=== PATIENT | female | born 1980 | race Caucasian/White ===

== ENCOUNTER 2022-09-04 12:02 | Emergency (ER) | payer SELFPAY ==
[2022-09-04] MEDS ORDERED: Rabies Immune Globulin 1500 UNITS/10 ML VIAL IM SCH (14:00)
[2022-09-04] MEDS ORDERED: Rabies Vaccine Human 2.5 UNITS VIAL IM ONE (14:00)
[2022-09-04] MEDS ORDERED: Rabies Vaccine Human 2.5 UNITS VIAL ONE (14:18)
== END 2022-09-04 15:43 ==
LOC: ERS 12:02
DX: S61.252A Open bite of right middle finger without damage to nail, initial encounter (principal); W55.51XA Bitten by raccoon, initial encounter
CPT/HCPCS: 90375; 90376; 90471; 90675; 96372